=== PATIENT | female | born 1960 | race Caucasian/White ===

== ENCOUNTER 2017-04-04 13:12 | Emergency (ER) | payer BC, MEDICAID ==
[~2017-04-04] VITALS: Ht 160 cm; Wt 77.1 kg
--- NOTE | 2017-04-04 13:36 | NUR ---
Pt states she would like a private room and will wait in ER lobby until one is available.
--- NOTE | 2017-04-04 14:31 | NUR ---
Patient discharged to home in stable conditon. Written and verbal after care instructions given to patient. Patient verbalizes understanding of instructions.
== END 2017-04-04 14:36 | disposition home or self-care (01) ==
LOC: ER 13:14
DX: R31.9 Hematuria, unspecified (principal); M70.61 Trochanteric bursitis, right hip; M94.0 Chondrocostal junction syndrome [Tietze]; I10 Essential (primary) hypertension; N83.209 Unspecified ovarian cyst, unspecified side
CPT/HCPCS: 99283; A4663

== ENCOUNTER 2018-02-16 16:52 | Emergency (ER) | payer BC, MEDICAID ==
[~2018-02-16] VITALS: Ht 160 cm; Wt 81.6 kg
--- NOTE | 2018-02-16 18:03 | NUR ---
PATIENT WAS SEEN BY ... AWAITING XRAYS
--- NOTE | 2018-02-16 18:44 | NUR ---
knee immobilizer applied by Cynthia Campbell LVN. DC, RX AND FOLLOW UP INSTRUCTIONS GIVEN AND EXPLAINED TO patient WHO STATES SHE UNDERSTANDS ALL INSTRUCTIONS including need for f/u with ortho md
== END 2018-02-16 18:47 | disposition home or self-care (01) ==
LOC: ER 16:54
DX: M25.562 Pain in left knee (principal); I10 Essential (primary) hypertension
CPT/HCPCS: A4663

== ENCOUNTER 2019-09-19 14:41 | Emergency (ER) | payer OTHER, MEDICAID ==
[~2019-09-19] VITALS: Ht 160 cm; Wt 81.6 kg
--- NOTE | 2019-09-19 15:21 | NUR ---
Patient discharged to home in stable condition. Written and verbal after care instructions given. Patient verbalizes understanding of instructions. pt walks in steady gait. Stressed follow up or return to ER for worsening s/s.
== END 2019-09-19 15:23 | disposition home or self-care (01) ==
LOC: ER 14:41
DX: M17.12 Unilateral primary osteoarthritis, left knee (principal); M19.072 Primary osteoarthritis, left ankle and foot; R10.2 Pelvic and perineal pain; I10 Essential (primary) hypertension
CPT/HCPCS: A4663